=== PATIENT | female | born 2000 | race African-American/Black ===

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

== ENCOUNTER 2021-04-19 19:29 | Outpatient (CLI) | payer OTHER | END 2021-04-19 19:30 | disposition home or self-care (01) | LOC: COV 19:29 | PROVIDERS: ATTEND Family Medicine | DX: U07.1 COVID-19 (principal) ==

== ENCOUNTER 2023-02-03 19:04 | Emergency (ER) | payer MEDICAID ==
[2023-02-03 19:13] VITALS: BP 130/68
--- NOTE | 2023-02-03 19:18 | ED Physician Documentation ---
PD HPI FEMALE - Stated complaint Stated Complaint: FEMALE - History obtained from History obtained from: Patient (She put a tampon in yesterday afternoon and last night could not find it. She is worried about retained tampon. No pain.) PD PAST MEDICAL HISTORY - Past Medical History Psych: Anxiety, Panic attacks - Past Surgical History Past Surgical History: No - Present Medications Home Medications: Ambulatory Orders Medication Instructions Recorded Confirmed SUMAtriptan [Imitrex] 25 mg PO BID PRN #10 tablet 11/11/17 Hydrocodone/Acetaminophen 1 each PO Q6H PRN #14 tablet 06/11/19 [Hydrocodon-Acetaminophen 5-325] diazePAM [Valium] 5 mg PO BID PRN #10 tablet 06/11/19 Doxycycline Hyclate 100 mg PO BID #20 capsule 08/23/19 Ibuprofen [Motrin] 800 mg PO Q8H PRN #30 tablet 08/23/19 Ondansetron Odt [Zofran] 4 mg TL Q6H PRN #10 tablet 08/23/19 - Allergies Allergies/Adverse Reactions: Allergies Allergy/AdvReac Type Severity Reaction Status Date / Time latex Allergy Mild Rash Verified 02/03/23 19:13 nickel Allergy Mild Rash Verified 02/03/23 19:13 shellfish Allergy Mild Rash Uncoded 02/03/23 19:13 - Social History Does the pt smoke?: No Smoking Status: Never smoker Does the pt drink ETOH?: No Does the pt have substance abuse?: No - Immunizations Immunizations are current?: Yes - POLST Patient has POLST: No PD ED PE NORMAL - Vitals Vital signs reviewed: Yes - General General: Alert and oriented X 3, No acute distress - Female Female : Dye Mixer present, Other (Exam done with Clarisse BETH present and chaperoning. There was some blood in the vault but no retained body or tampon.) - Neuro Neuro: Alert and oriented X 3, Normal speech Results - Vitals Vitals: Vital Signs - 24 hr 02/03/23 19:07 Temperature 36.7 C Heart Rate 92 Respiratory 18 Rate Blood Pressure 130/68 O2 Saturation 99 Oxygen O2 Source Room air Departure - Departure Disposition: 01 Home, Self Care Clinical Impression: Retained tampon not found on examination Condition: Good Record reviewed to determine appropriate education?: Yes Comments: No evidence of vaginal foreign body, return if you worsen.
== END 2023-02-03 20:26 | disposition home or self-care (01) ==
LOC: ED 19:04
DX: T19.2XXA Foreign body in vulva and vagina, initial encounter (principal); X58.XXXA Exposure to other specified factors, initial encounter; Z91.040 Latex allergy status
CPT/HCPCS: 99283

== ENCOUNTER 2023-03-23 08:00 | Outpatient (CLI) | payer MEDICAID | END 2023-03-23 23:59 | disposition home or self-care (01) | LOC: LAB.F 08:00 | PROVIDERS: ATTEND Emergency Medicine | DX: H60.501 Unspecified acute noninfective otitis externa, right ear (principal) | CPT/HCPCS: 87070; 87205 ==

== ENCOUNTER 2024-05-08 08:00 | Outpatient (CLI) | payer MEDICAID | END 2024-05-08 23:59 | disposition home or self-care (01) | LOC: LAB.S 08:00 | PROVIDERS: ATTEND Nurse Practitioner | DX: N39.0 Urinary tract infection, site not specified (principal) | CPT/HCPCS: 87086; 87181 ==

== ENCOUNTER 2024-05-20 00:48 | Emergency (ER) | payer MEDICAID ==
[2024-05-20 01:57] LABS: BASOPHILS % (AUTO) 0.3 %; EOSINOPHILS # (AUTO) 0.1 10^3/uL (0.0-0.7); EOSINOPHILS % (AUTO) 1.2 %; HCT - HEMATOCRIT 40.2 % (37.0-47.0); HGB - HEMOGLOBIN 13.6 g/dL (12.0-16.0); LYMPHOCYTES # (AUTO) 1.6 10^3/uL (1.5-3.5); LYMPHOCYTES % (AUTO) 21.1 %; MEAN CORPUSCULAR HEMOGLOBIN 28.9 pg (27.0-31.0); MEAN CORPUSCULAR HGB CONC 33.8 g/dL (32.0-36.0); MEAN CORPUSCULAR VOLUME 85.5 fL (81.0-99.0); MEAN PLATELET VOLUME 9.3 fL (7.9-10.8); MONOCYTES # (AUTO) 0.6 10^3/uL (0.0-1.0); MONOCYTES % (AUTO) 8.3 %; NEUTROPHILS # (AUTO) 5.2 10^3/uL (1.5-6.6); NEUTROPHILS % (AUTO) 68.8 %; PLT - PLATELET COUNT 200 10^3/uL (130-450); WHITE BLOOD COUNT 7.6 x10^3/uL (4.8-10.8)
[2024-05-20 01:59] LABS: BILIRUBIN,URINE NEGATIVE (NEGATIVE); GLUCOSE, URINE (UA) NEGATIVE (NEGATIVE); KETONES,URINE (UA) 15 mg/dL (NEGATIVE); LEUKOCYTE ESTERASE, URINE NEGATIVE (NEGATIVE); NITRITE,URINE NEGATIVE (NEGATIVE); OCCULT BLOOD,URINE NEGATIVE (NEGATIVE); PROTEIN,URINE NEGATIVE (NEGATIVE); UROBILINOGEN,URINE 0.2 (NORMAL) E.U./dL (NORMAL)
[2024-05-20 02:01] LABS: CLARITY,URINE CLEAR (CLEAR); HCG UR QUAL NEGATIVE
[2024-05-20 02:11] LABS: ALBUMIN 4.4 g/dL (3.2-5.5); ALBUMIN/GLOBULIN RATIO 1.5 (1.0-2.2); BILIRUBIN,TOTAL 0.6 mg/dL (0.2-1.0); CALCIUM 9.3 mg/dL (8.5-10.3); CREATININE 0.9 mg/dL (0.6-1.3); POTASSIUM 3.5 mmol/L (3.5-4.5); TOTAL PROTEIN 7.3 g/dL (6.4-8.9)
--- NOTE | 2024-05-20 03:47 | ED Physician Documentation ---
PD HPI FEMALE - Stated complaint Stated Complaint: - Chief complaint Chief Complaint: Abd Pain - History obtained from History obtained from: Patient - Additional information Additional information: HPI from patient. Patient c/o sudden onset pelvic pain, R>L, radiating to abdomen as well as (episodically) to right shoulder. Onset was tonight (few hours [employer]) during intercourse. Exacerbated with movement, palpation. No ameliorating factors. PMHx includes left ovarian torsion for which she underwent surgery but the ovary was salvaged (July 2022). Patient says tonight's pain feels different than that associated with her torsion Has had nausea but denies vomiting. Review of Systems Constitutional: denies: Fever, Chills, Sweats Cardiac: reports: Reviewed and negative Respiratory: reports: Reviewed and negative GI: reports: Abdominal Pain, Nausea. 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 Psych: Anxiety, Panic attacks - Past Surgical History Past Surgical History: No /SUPERVISOR BRAIDING: Other - Present Medications Home Medications: Ambulatory Orders Medication Instructions Recorded Confirmed SUMAtriptan [Imitrex] 25 mg PO BID PRN #10 tablet 11/11/17 Hydrocodone/Acetaminophen 1 each PO Q6H PRN #14 tablet 06/11/19 [Hydrocodon-Acetaminophen 5-325] diazePAM [Valium] 5 mg PO BID PRN #10 tablet 06/11/19 Doxycycline Hyclate 100 mg PO BID #20 capsule 08/23/19 Ibuprofen [Motrin] 800 mg PO Q8H PRN #30 tablet 08/23/19 Ondansetron Odt [Zofran] 4 mg TL Q6H PRN #10 tablet 08/23/19 Ondansetron Odt [Zofran] 4 mg TL Q6H PRN #10 tablet 05/20/24 Oxycodone HCl/Acetaminophen 1 - 2 each PO Q6H PRN #14 tablet 05/20/24 [Percocet 5-325 mg Tablet] - Allergies Allergies/Adverse Reactions: Allergies Allergy/AdvReac Type Severity Reaction Status Date / Time latex Allergy Mild Rash Verified 02/03/23 19:13 nickel Allergy Mild Rash Verified 02/03/23 19:13 shellfish Allergy Mild Rash Uncoded 02/03/23 19:13 - Social History Does the pt smoke?: No Smoking Status: Never smoker Does the pt drink ETOH?: No Does the pt have substance abuse?: No - Immunizations Immunizations are current?: Yes - POLST Patient has POLST: No PD ED PE NORMAL - Vitals Vital signs reviewed: Yes - General General: Alert and oriented X 3, No acute distress, Well developed/nourished - Cardiac Cardiac: RRR, No murmur - Respiratory Respiratory: No respiratory distress, Clear bilaterally - Abdomen Abdomen: Soft, Non tender (no abdominal tenderness but TTP across anterior pelvis without rebound or guarding), Non distended - Back Back: No CVA TTP Results - Vitals Vitals: Oxygen O2 Source Room air - Labs Labs: Laboratory Tests 05/20/24 05/20/24 05/20/24 01:55 01:55 01:55 WBC 7.6 RBC 4.70 Hgb 13.6 Hct 40.2 MCV 85.5 MCH 28.9 MCHC 33.8 RDW 12.0 Plt Count 200 MPV 9.3 Neut # (Auto) 5.2 Lymph # (Auto) 1.6 [place] # (Auto) 0.6 Eos # (Auto) 0.1 Baso # (Auto) 0.0 Absolute Nucleated RBC 0.00 Nucleated RBC % 0.0 Sodium 136 Potassium 3.5 Chloride 103 Carbon Dioxide 25 Anion Gap 8.0 BUN 22 H Creatinine 0.9 Estimated GFR (MDRD) 94 Glucose 97 Calcium 9.3 Total Bilirubin 0.6 AST 21 ALT 13 Alkaline Phosphatase 65 Total Protein 7.3 Albumin 4.4 Globulin 2.9 Albumin/Globulin Ratio 1.5 Lipase 23 Urine Color YELLOW Urine Clarity CLEAR Urine pH 6.0 Ur Specific [place] 1.020 Urine Protein NEGATIVE Urine Glucose (UA) NEGATIVE Urine Ketones 15 H Urine Occult Blood NEGATIVE Urine Nitrite NEGATIVE Urine Bilirubin NEGATIVE Urine Urobilinogen 0.2 (NORMAL) Ur Leukocyte Esterase NEGATIVE Ur Microscopic Review NOT INDICATED Urine Culture Comments NOT INDICATED Urine HCG, Qual NEGATIVE - Rads (name of study) CT A/P with IV contrast Relevant Findings:: Prelim report reviewed, See rad report transvaginal US with colorflow doppler Relevant Findings:: Prelim report reviewed, See rad report PD Medical Decision Making - ED course Complexity details: reviewed results, re-evaluated patient, considered differential, d/w patient ED course: No concerning findings on CBC (normal except low RDW), ER abdominal panel, UA (except 15 ketones), and negative UHCG. She is given 15mg IV toradol. She reports feeling anxious after initial H+P and requests mediation to help with this. I ordered 0.5mg IV lorazepam but patient then declined when ED RN went to administer this. CT A/P shows right adnexal cystic structure with wall enhancement measuring 4.1 cm diameter; this is per radiologist's reading which then includes "recommend further evaluation with pelvic ultrasound". US is not available until [address] [facility], and due to understaffing, I was subsequently told there will be further delay and thus patient is awaiting this study at end of my shift. Care of patient is turned over to oncoming ED physician (Dr. Brandt). Before end of my shift, I discussed the test results including CT A/P results with patient. Departure - Departure Disposition: 01 Home, Self Care Clinical Impression: Hemorrhagic cyst of right ovary Condition: Stable Instructions: ED Cyst Ovarian Follow-Up: [facility] [Provider Group] Prescriptions: Oxycodone HCl/Acetaminophen [Percocet 5-325 mg Tablet] 1 - 2 each PO Q6H PRN #14 tablet PRN Reason: pain Ondansetron Odt [Zofran] 4 mg TL Q6H PRN #10 tablet PRN Reason: Nausea / Vomiting Comments: Janine, today we found that you have a hemorrhagic cyst on the right ovary. There is no evidence of torsion. This is usually a painful condition and may last for up to 3 to 4 days. I have E scribed some Percocet to the [facility] in [place] as well as some Zofran. A follow-up with women's health is indicated for this condition. A repeat ultrasound has been recommended. Forms: PCP List Discharge Date/Time: 05/20/24 10:31
[2024-05-20] MEDS ORDERED: iohexoL-300 100 ML VIAL ONE (04:23)
[2024-05-20] MEDS: KETOROLAC 15 MG/ML VIAL IVP STA (04:28)
[2024-05-20] MEDS: LORazepam 2 MG/ML VIAL IVP STA (04:43)
[2024-05-20] MEDS: iohexoL-300 100 ML VIAL IVP ONE (04:45)
[2024-05-20 08:11] VITALS: O2SAT 99
--- NOTE | 2024-05-20 08:15 | CT Report ---
PROCEDURE: Abdomen/Pelvis W INDICATIONS: abd/pelvic pain CONTRAST: OMNI 300, 100mls TECHNIQUE: After the administration of intravenous contrast, a CT scan of the abdomen and pelvis was performed. Images were recorded and evaluated at appropriate window settings. Reformats: coronal and sagittal. F or radiation dose reduction, the following was used: automated exposure control, adjustment of mA and /or kV according to patient size. COMPARISON: 06/11/2019. FINDINGS: Image quality: Diagnostic. Lower chest: Unremarkable. Liver: No solid mass. Gallbladder: No radiopaque stones or wall thickening. Biliary tree: No intrahepatic or extrahepatic dilation, accounting for age. Spleen: No splenomegaly. Pancreas: No pancreatic ductal dilation. Adrenals: No adrenal nodule. Kidneys and ureters: No hydronephrosis. No renal cystic lesion which requires follow up. No solid mas s. Stomach, bowel and peritoneum: No gastric or small bowel dilation. No abnormal wall thickening. No pa thologic free fluid. Lymph nodes: No central or retroperitoneal adenopathy. Vessels: No infrarenal aortic aneurysm. Patent portal vein. PELVIS Reproductive organs: There is a right adnexal cystic structure with wall enhancement measuring 3.4 x 4.0 x 4.1 cm. This may be paraovarian in location. Uterus is unremarkable. Bladder: No abnormal wall thickening, accounting for underdistention. Pelvic lymph nodes: No pelvic adenopathy by size criteria. Bones: No aggressive osseous abnormality. Other: No significant ventral or inguinal hernia. IMPRESSION: 1. Right adnexal cystic structure with wall enhancement measuring 4.1 cm in maximum diameter. Recommend further evaluation with pelvic ultrasound. Findings are concordant with preliminary interpretation provided by [facility]. Reviewed by: Abdias Herr MD on 05/20/2024 8:13 AM PDT Approved by: Abdias Herr MD on 05/20/2024 8:13 AM PDT Station ID: [id number]
[2024-05-20] MEDS: HYDROmorphone 1 MG/ML CARPUJECT IVP STA (09:00)
[2024-05-20] MEDS: ONDANSETRON 4 MG/2 ML VIAL IVP STA (09:01)
--- NOTE | 2024-05-20 09:50 | Ultrasound Report ---
PROCEDURE: Transvaginal INDICATIONS: per ct need u/s, hx of torsion TECHNIQUE: Real-time endovaginal scanning was performed of the pelvic organs, with image documentation. COMPARISON: CT abdomen and pelvis from the same date. FINDINGS: Uterus: Uterus is anteverted and normal in size at 7.4 x 3.7 x 4 point cm. The myometrium is homoge neous. The endometrium measures 10.9 mm in combined thickness. No fibroids noted Ovaries: The right ovary measures 6.0 x 3.7 x 4.1 cm, with a calculated ovarian volume of 47.3 cc. The left ovary measures 2.2 x 1.1 x 2.4 cm, with a calculated ovarian volume of 2.9 cc. The ovaries have a normal sonographic appearance. Less than 12 follicles can be seen in each ovary. No adnexal masses are seen. There is a right ovarian hemorrhagic cyst measuring 3.8 x 2.6 x 3.0 cm. There is no evidence of ovarian torsion. There is bilateral intraovarian duplex flow. Other: There is a small amount of complex fluid present subjacent to the right ovary. IMPRESSION: 1. Findings consistent with a hemorrhagic right ovarian cyst with associated minimal hemorrhagic flui d. Reviewed by: Abdias Herr MD on 05/20/2024 9:49 AM PDT Approved by: Abdias Herr MD on 05/20/2024 9:49 AM PDT Station ID: [id number]
[2024-05-20] MEDS ORDERED: PROMETHAZINE INJ 25 MG in SODIUM CHLORIDE 0.9% 50 ML IV STA (10:06)
--- NOTE | 2024-05-20 10:24 | ED Physician Documentation ---
ED Addendum - Addendum Addendum: 23-year-old Janine Fontana was left my care at shift change with results of pelvic ultrasound pending. She has had pelvic ultrasound done now demonstrating a right ovarian cyst with evidence of hemorrhage. There is no rupture. There is no torsion. Ovarian cyst: Impression: 1. Findings consistent with a hemorrhagic right ovarian cyst with associated minimal hemorrhagic fluid. She is administered Dilaudid and Zofran with some increased nausea and we will send her home with some pain medication and nausea medicine and a referral to women's health. 05/20/24 10:22 Results - Vitals Vitals: Vital Signs - 24 hr 05/20/24 05/20/24 05/20/24 01:22 03:24 05:24 Temperature 36.5 C 36.9 C Heart Rate 88 81 84 Respiratory 18 16 16 Rate Blood Pressure 124/77 131/67 H 119/68 O2 Saturation 100 99 100 05/20/24 05/20/24 05/20/24 07:00 09:00 10:31 Temperature Heart Rate 75 70 68 Respiratory 18 16 17 Rate Blood Pressure 111/73 106/69 108/67 O2 Saturation 99 99 99 Oxygen O2 Source Room air - Labs Labs: Laboratory Tests 05/20/24 05/20/24 05/20/24 01:55 01:55 01:55 WBC 7.6 RBC 4.70 Hgb 13.6 Hct 40.2 MCV 85.5 MCH 28.9 MCHC 33.8 RDW 12.0 Plt Count 200 MPV 9.3 Neut # (Auto) 5.2 Lymph # (Auto) 1.6 [place] # (Auto) 0.6 Eos # (Auto) 0.1 Baso # (Auto) 0.0 Absolute Nucleated RBC 0.00 Nucleated RBC % 0.0 Sodium 136 Potassium 3.5 Chloride 103 Carbon Dioxide 25 Anion Gap 8.0 BUN 22 H Creatinine 0.9 Estimated GFR (MDRD) 94 Glucose 97 Calcium 9.3 Total Bilirubin 0.6 AST 21 ALT 13 Alkaline Phosphatase 65 Total Protein 7.3 Albumin 4.4 Globulin 2.9 Albumin/Globulin Ratio 1.5 Lipase 23 Urine Color YELLOW Urine Clarity CLEAR Urine pH 6.0 Ur Specific [place] 1.020 Urine Protein NEGATIVE Urine Glucose (UA) NEGATIVE Urine Ketones 15 H Urine Occult Blood NEGATIVE Urine Nitrite NEGATIVE Urine Bilirubin NEGATIVE Urine Urobilinogen 0.2 (NORMAL) Ur Leukocyte Esterase NEGATIVE Ur Microscopic Review NOT INDICATED Urine Culture Comments NOT INDICATED Urine HCG, Qual NEGATIVE - Rads (name of study) us pelvic Relevant Findings:: Prelim report reviewed (Impression: 1. Findings consistent with a hemorrhagic right ovarian cyst with associated minimal hemorrhagic fluid.), EMP independent interpretation of test, See rad report Departure - Departure Disposition: 01 Home, Self Care Clinical Impression: Hemorrhagic cyst of right ovary Condition: Stable Instructions: ED Cyst Ovarian Follow-Up: [facility] [Provider Group] Prescriptions: Oxycodone HCl/Acetaminophen [Percocet 5-325 mg Tablet] 1 - 2 each PO Q6H PRN #14 tablet PRN Reason: pain Ondansetron Odt [Zofran] 4 mg TL Q6H PRN #10 tablet PRN Reason: Nausea / Vomiting Comments: Janine, today we found that you have a hemorrhagic cyst on the right ovary. There is no evidence of torsion. This is usually a painful condition and may last for up to 3 to 4 days. I have E scribed some Percocet to the [facility] in [place] as well as some Zofran. A follow-up with women's health is indicated for this condition. A repeat ultrasound has been recommended. Forms: PCP List Discharge Date/Time: 05/20/24 10:31
[2024-05-20 10:46] VITALS: BP 108/67
== END 2024-05-20 10:31 | disposition home or self-care (01) ==
LOC: ED 00:48
DX: N83.201 Unspecified ovarian cyst, right side (principal); Z79.899 Other long term (current) drug therapy; Z91.040 Latex allergy status
CPT/HCPCS: 36415; 74177; 76830; 80053; 81003; 81025; 83690; 85025; 96374; 96375; 99284; J1170; J7040; Q9967; 81001; 87086

== ENCOUNTER 2024-05-22 08:00 | Outpatient (CLI) | payer MEDICAID ==
[2024-05-22 18:47] LABS: CHLAMYDIA TRACHOMATIS DNA NEGATIVE (NEGATIVE); NEISSERIA GONORRHOEAE DNA NEGATIVE (NEGATIVE); TRICHOMONAS VAGINALIS DNA NEGATIVE (NEGATIVE)
== END 2024-05-22 23:59 | disposition home or self-care (01) ==
LOC: LAB.WC 08:00
PROVIDERS: ATTEND Obstetrics & Gynecology
DX: Z11.3 Encounter for screening for infections with a predominantly sexual mode of transmission (principal)
CPT/HCPCS: 87491; 87591; 87661